=== PATIENT | female | born 1950 | race Caucasian/White ===

== ENCOUNTER 2023-07-02 10:51 | Day surgery (SDC) | payer MEDICARE, MEDICAID ==
[2023-07-02] VITALS (11 sets, daily range): BP systolic 97–116; BP diastolic 51–68; PULSE 68–108; RESP 12–22; TEMP 98.7; O2SAT 96–100
[~2023-07-02] VITALS: Ht 152.4 cm; Wt 73.1 kg
[~2023-07-02 10:51] MED LIST: ALLO100T PO; ASPI-41 PO; ATOR40TA PO; CARV-50 PO; CITA40TA17 PO; FENO145T38 PO; FERR325T28 PO; FISH12002 PO; FURO-150 PO; LEVO25TA2 PO; LISI5TAB22 PO; MAGN1TAB PO; METH-348 PO; NITR0.4T51 SL; POTA-192 PO; PRAV10TA39 PO; SPIR25TA5 PO; TRAM50TA2 PO
[2023-07-02] MEDS ORDERED: MIDAZolam 1mg/ml 10ml vial IV ONE (11:20)
[2023-07-02] MEDS ORDERED: normal saline 1000ml 1,000 ML IV SCH (11:20)
[2023-07-02] MEDS ORDERED: fentaNYL/PF 50MCG/1 ML 2ML syringe IV ONE (11:20)
[2023-07-02] MEDS ORDERED: ATOR80TA PO (11:25)
[2023-07-02] MEDS ORDERED: ARIP10TA57 PO (11:25)
[2023-07-02] MEDS ORDERED: CARV25TA56 PO (11:25)
[2023-07-02 11:27] LABS: BASOPHILS % (AUTO) 0.5 % (0-1); EOSINOPHILS # (AUTO) 0.2 X10'3 (0-0.9); EOSINOPHILS % (AUTO) 2.8 % (0-6); HEMATOCRIT 37.1 % (35.0-45.0); HEMOGLOBIN 12.3 g/dl (12.0-16.0); LYMPHOCYTES # (AUTO) 1.8 X10'3 (1.1-4.8); LYMPHOCYTES % (AUTO) 22.2 % (21-51); MEAN CORPUSCULAR HGB CONC 33.2 g/dL (33.0-36.5); MEAN CORPUSCULAR VOLUME 90.4 FL (78-98); MEAN PLATELET VOLUME 8.5 FL (7.4-10.4); MONOCYTES # (AUTO) 0.6 X10'3 (0-0.9); MONOCYTES % (AUTO) 7.7 % (2-12); NEUTROPHILS # (AUTO) 5.5 X10'3 (1.8-7.7); NEUTROPHILS % (AUTO) 66.8 % (42-75); PLATELET COUNT 259 X10'3 (140-440); RED CELL DISTRIBUTION WIDTH 15.3 % (11.5-14.5); WHITE BLOOD COUNT 8.2 X10'3 (4.5-11.0)
[2023-07-02] MEDS ORDERED: OMEG10006 PO (11:43)
[2023-07-02] MEDS ORDERED: Vit D3 PO (11:43)
[2023-07-02] MEDS ORDERED: CHOL500044 PO (11:43)
[2023-07-02] MEDS ORDERED: VENL150C58 PO (11:43)
[2023-07-02] MEDS ORDERED: METH-350 PO (11:43)
[2023-07-02] MEDS ORDERED: tumeric PO (11:43)
[2023-07-02] MEDS ORDERED: NITR0.4T51 SL (11:43)
[2023-07-02] MEDS ORDERED: INDO50CA96 PO (11:43)
[2023-07-02] MEDS ORDERED: SEMA7TAB2 PO (11:43)
[2023-07-02] MEDS ORDERED: SACU1TAB7 PO (11:43)
[2023-07-02] MEDS ORDERED: METF-438 PO (11:43)
[2023-07-02] MEDS ORDERED: FURO40TA4 PO (11:43)
[2023-07-02] MEDS ORDERED: LORA-949 PO (11:43)
[2023-07-02] MEDS ORDERED: FERR-29 PO (11:43)
[2023-07-02] MEDS ORDERED: VITA1CAP PO (11:43)
[2023-07-02] MEDS ORDERED: TRAM50TA2 PO (11:43)
[2023-07-02] MEDS ORDERED: MAGN400C PO (11:43)
[2023-07-02] MEDS ORDERED: CYCL5TAB PO (11:43)
[2023-07-02] MEDS ORDERED: LEVO50TA8 PO (11:43)
[2023-07-02] MEDS ORDERED: AMI200T PO (11:43)
[2023-07-02] MEDS ORDERED: APIX5TAB3 PO (11:43)
[2023-07-02 11:45] LABS: INR 1.2 INR
[2023-07-02 11:48] LABS: ALBUMIN 3.6 G/DL (3.4-5.0); ANION GAP 12 (8-16); BLOOD UREA NITROGEN 46 MG/DL (7-18); BUN/CREATININE RATIO 24.5 (10.0-20.0); CALCIUM 9.3 MG/DL (8.5-10.1); CHLORIDE 100 MMOL/L (99-107); CREATININE 1.88 MG/DL (0.40-0.90); GLUCOSE 119 MG/DL (70-104); MAGNESIUM 1.6 MG/DL (1.5-2.4); POTASSIUM 3.9 MMOL/L (3.5-5.1); SODIUM 138 MMOL/L (135-145); TOTAL CARBON DIOXIDE 26.4 MMOL/L (24-32); eCRCL 19 ML/MIN; eGFR 26 ML/MIN
== END 2023-07-02 13:00 | disposition home or self-care (01) ==
LOC: SSTAY O 10:51
PROVIDERS: ATTEND Internal Medicine Cardiovascular Disease
DX: I48.91 Unspecified atrial fibrillation (principal); I25.10 Atherosclerotic heart disease of native coronary artery without angina pectoris; E78.5 Hyperlipidemia, unspecified; I50.9 Heart failure, unspecified; N18.9 Chronic kidney disease, unspecified; D64.9 Anemia, unspecified; G47.30 Sleep apnea, unspecified; E87.5 Hyperkalemia; I42.8 Other cardiomyopathies; I34.0 Nonrheumatic mitral (valve) insufficiency; Z79.899 Other long term (current) drug therapy
CPT/HCPCS: 36415; 80048; 83735; 85025; 85610; 92960; 93005; J2250; J3010; J7030; A4620

== ENCOUNTER 2024-08-18 08:16 | Day surgery (SDC) | payer MEDICARE, MEDICAID ==
[~2024-08-18] VITALS: Ht 149.9 cm; Wt 68.5 kg
[2024-08-18] VITALS (9 sets, daily range): BP systolic 112–142; BP diastolic 49–62; PULSE 65–81; RESP 16; TEMP 98; O2SAT 98–99
[~2024-08-18 08:16] MED LIST changes: +AMI200T PO; +APIX5TAB3 PO; +ARIP10TA87 PO; +ATOR-429 PO; -ATOR40TA PO; -CARV-50 PO; +CARV25TA56 PO; +CHOL500044 PO; +CYCL-920 PO; +FERR-29 PO; +FURO40TA4 PO; +INDO50CA96 PO; +LEVO50TA8 PO; +LORA-949 PO; +MAGN400C PO; +METF-438 PO; +METH-350 PO; +OMEG10006 PO; +SACU1TAB7 PO; +SEMA7TAB2 PO; +VENL150C58 PO; +VITA1CAP PO; +Vit D3 PO; +tumeric PO
[2024-08-18] MEDS ORDERED: MIDAZolam 1mg/ml 10ml vial IV ONE (08:45)
[2024-08-18] MEDS ORDERED: fentaNYL/PF 50MCG/1 ML 2ML syringe IV ONE (08:45)
[2024-08-18] MEDS ORDERED: normal saline 1000ml 1,000 ML IV SCH (08:45)
[2024-08-18] MEDS ORDERED: verapamil 2.5 mg/ml inj IV ONE (08:53)
[2024-08-18] MEDS ORDERED: LIDOcaine 1% 30ml preserv. free vial ONE (08:53)
[2024-08-18] MEDS ORDERED: iohexol 350 MG/ML 50ML vial IV ONE (08:54)
[2024-08-18] MEDS ORDERED: fentaNYL/PF 50MCG/1 ML 2ML syringe ONE (08:54)
[2024-08-18] MEDS ORDERED: iohexol 350MG/ML 100ml bottle IV ONE (08:54)
[2024-08-18] MEDS ORDERED: heparin 1,000unit/ml 10ml vial 10 ML ONE (08:54)
[2024-08-18] MEDS ORDERED: midazolam 1 mg/ML 2ml injection ONE ×2 (08:54→09:59)
[2024-08-18 09:15] LABS: BASOPHILS # (AUTO) 0.1 X10'3 (0-0.2); EOSINOPHILS # (AUTO) 0.1 X10'3 (0-0.9); EOSINOPHILS % (AUTO) 1.6 % (0-6); HEMATOCRIT 29.5 % (35.0-45.0); HEMOGLOBIN 9.7 g/dl (12.0-16.0); LYMPHOCYTES # (AUTO) 1.1 X10'3 (1.1-4.8); MEAN CORPUSCULAR HEMOGLOBIN 29.7 PG (27.0-31.0); MEAN PLATELET VOLUME 8.5 FL (7.4-10.4); MONOCYTES # (AUTO) 0.4 X10'3 (0-0.9); MONOCYTES % (AUTO) 6.5 % (2-12); NEUTROPHILS # (AUTO) 4.5 X10'3 (1.8-7.7); NEUTROPHILS % (AUTO) 72.9 % (42-75); PLATELET COUNT 285 X10'3 (140-440); RED BLOOD COUNT 3.28 X10'6 (4.20-5.60); RED CELL DISTRIBUTION WIDTH 15.7 % (11.5-14.5); WHITE BLOOD COUNT 6.1 X10'3 (4.5-11.0)
[2024-08-18] MEDS ORDERED: sodium bicarbonate 1meq/ml inj 150 ML in dextrose 5%-water 1,000 ML IV ONE (09:15)
[2024-08-18 09:19] LABS: ALBUMIN 3.4 G/DL (3.4-5.0); ANION GAP 9 (8-16); BLOOD UREA NITROGEN 42 MG/DL (7-18); BUN/CREATININE RATIO 19.4 (10.0-20.0); CALCIUM 8.7 MG/DL (8.5-10.1); CHLORIDE 105 MMOL/L (99-107); CREATININE 2.17 MG/DL (0.40-0.90); GLUCOSE 105 MG/DL (70-104); MAGNESIUM 2.1 MG/DL (1.5-2.4); POTASSIUM 4.8 MMOL/L (3.5-5.1); SODIUM 139 MMOL/L (135-145); TOTAL CARBON DIOXIDE 25.4 MMOL/L (24-32); eCRCL 15 ML/MIN; eGFR 22 ML/MIN
[2024-08-18] MEDS ORDERED: EMPA25TA PO (09:32)
[2024-08-18 09:36] LABS: INR 1.2 INR
[2024-08-18 09:41] LABS: PROTHROMBIN TIME 12.2 SECONDS (9.0-12.0)
[2024-08-18] MEDS ORDERED: nitroGLYCERIN 500mcg/5mL D5W 5 ML IV ONE (09:49)
[2024-08-18] MEDS ORDERED: HYDROcodone/acetaminophen 10/325mg tab PO PRN (10:45)
[2024-08-18] MEDS ORDERED: HYDROcodone/acetaminophen 5mg/325mg tablet PO PRN (10:45)
[2024-08-18] MEDS ORDERED: proCHLORperazine 10 MG/2 ml inj IV PRN (10:45)
[2024-08-18] MEDS ORDERED: ondansetron/PF 4mg/2ml inj IV PRN (10:45)
== END 2024-08-18 13:40 | disposition home or self-care (01) ==
LOC: SSTAY O 08:16
PROVIDERS: ATTEND Internal Medicine Cardiovascular Disease
DX: I25.10 Atherosclerotic heart disease of native coronary artery without angina pectoris (principal); I48.91 Unspecified atrial fibrillation; I42.9 Cardiomyopathy, unspecified; N18.9 Chronic kidney disease, unspecified; D50.9 Iron deficiency anemia, unspecified; G47.30 Sleep apnea, unspecified; Z79.899 Other long term (current) drug therapy; I44.7 Left bundle-branch block, unspecified
CPT/HCPCS: 36415; 80048; 83735; 85025; 85610; 93005; 93458; 99152; 99153; A4615; A6258; A6402; C1894; J1644; J2003; J2250; J3010; J3490; J7030; Q9967; Z7610; 92960